=== PATIENT | female | born 1995 ===

== ENCOUNTER 2016-05-14 15:04 | Emergency (ER) | payer BC ==
[2016-05-14 15:46] VITALS: BP 106/69
--- NOTE | 2016-05-14 15:55 | RAD ---
Indication: Right ankle injury. 3 views of the right ankle demonstrates no fracture or dislocation. No other bone or joint abnormality is noted. IMPRESSION: No fracture of the right ankle is noted.
--- NOTE | 2016-05-14 16:07 | UC ---
Lower Extremity/Ankle HPI - HPI Summary HPI Summary: Patient arrives to with CC of right ankle pain after inverting ankle during basketball practice yesterday. Denies knee pain. Pulses intact bilatearlly. No ecchymosis noted over extremity. Denies numbness or tingling in extremity. Denies other injury. Endorses pain over the lateral aspect of right ankle. She states she has injured the area several times. - History of Current Complaint Chief Complaint: UCLowerExtremity Stated Complaint: RIGHT ANKLE PAIN Hx Obtained From: Patient Hx Last Menstrual Period: 04/27/16 ?: No Onset/Duration: Sudden Onset Severity Initially: Moderate Severity Currently: Moderate Pain Intensity: 3 Pain Scale Used: 0-10 Numeric Aggravating Factor(s): Ambulation Alleviating Factor(s): Rest Able to Bear Weight: No - Risk Factors Gout Risk Factors: Negative DVT Risk Factors: Negative Septic Arthritis Risk Factor: Negative - Allergies/Home Medications Allergies/Adverse Reactions: Allergies Allergy/AdvReac Type Severity Reaction Status Date / Time No Known Allergies Allergy Verified 05/14/16 15:23 Home Medications: Home Medications Bcp 1 tab PO DAILY 05/14/16 [History] PMH/Surg Hx/FS Hx/Imm Hx Previously Healthy: Yes - Surgical History Surgical History: None - Social History Occupation: Student Lives: Alone Alcohol Use: Occasionally Substance Use Type: None Smoking Status (MU): Never Smoked Tobacco Have You Smoked in the Last Year: No Review of Systems Constitutional: Negative Skin: Negative Respiratory: Negative Cardiovascular: Negative Motor: Decreased ROM Neurovascular: Negative Musculoskeletal: Arthralgia - right ankle Neurological: Negative Psychological: Negative All Other Systems Reviewed And Are Negative: Yes Physical Exam Triage Information Reviewed: Yes Appearance: Well-Appearing, No Pain Distress, Well-Nourished Vital Signs: Initial Vital Signs Temp 99.3 F 05/14/16 15:18 Pulse 76 05/14/16 15:18 Resp 16 05/14/16 15:18 BP 106/69 05/14/16 15:18 Pulse Ox 100 05/14/16 15:18 Vital Signs Reviewed: Yes Eye Exam: Normal Eyes: Positive: Conjunctiva Clear Neck exam: Normal Neck: Positive: Supple, Nontender Respiratory Exam: Normal Respiratory: Positive: Chest non-tender, Lungs clear Cardiovascular Exam: Normal Musculoskeletal Exam: Other - Thorough physical exam was performed, focusing on ankle special tests. Pain on palpation over lateral aspect and superior aspect of ankle over ATFL and deltoid ligaments. No pain on palpation over medial side. Due to patient pain around injury, physical exam was limited. Unable to perform anterior drawer test or talar tilt test d/t pain. Newman test negative. Limited ROM. Dorsiflexion, great toe extension and plantar flexion intact however limited. No pain on palpation over medial or lateral lower extremity. No pain with knee flexion. Pulses intact bilaterally. No temperature change or pallor noted bilaterally. No ecchymosis or swelling noted on lateral aspect. No lesion or disruption of skin is seen. Unable to bear weight. Neurological Exam: Normal Psychological Exam: Normal Psychological: Positive: Normal Response To Family, Age Appropriate Behavior Diagnostics - Radiology No standard instances Xray Interpretation: No Acute Changes Radiology Interpretation Completed By: Radiologist Lower Extremity Course/Dx - Course Course Of Treatment: Based on [place] Ankle Rules, patient sent to imaging. Xray negative for fracture or other acute findings. Medial and lateral distal lower extremity without pain and x-rays show no widening of the ankle joint regarding low suspicion for Maisonneuve fx. Ankle gel splint given for patient comfort to allow for immobilization for this period of time. Patient with crutches on arrival. Patient given orthopedic follow up in 5-7 days. Encouraged Ibuprofen 600mg three times daily with meals for pain. Return precautions given. Educated patient regarding ankle injuries and healing time and the possibility of further evaluation and imaging as orthopedist sees fit. - Differential Dx/Diagnosis Differential Diagnosis/HQI/PQRI: Contusion, Dislocation, Fracture (Closed), Sprain, Strain Provider Diagnoses: Ankle Sprain Discharge - Discharge Plan Condition: Stable Disposition: HOME Patient Education Materials: Ankle Sprain (ED), Ankle Exercises (GEN) Forms: *School Release Referrals: Non Staff,Doctor [Primary Care Provider] - Additional Instructions: Use ankle gel splint for comfort and stability. Crutches for ambulation. Ibuprofen 600mg three times daily with meals for pain. Follow up with orthopedic physician in 5-7 days. If numbness, tingling, decreased sensation, increased pain, temperature changes or pallor noted in toes, come back to ER immediately. Protect the area. For your comfort level, do not bear weight, pull or push until you can injury is somewhat healed. This may involve the need for immobilization or crutches for a period of time. Rest the involved area, but not too long. You may need to be off your injury for some time to allow for healing, however excessive immobilization of joints can lead to stiffness and delay healing time. Early mobilization is encouraged if it is pain-free. Ice. Not directly on the skin. Cover with a towel. Apply ice no more than 30 minutes at a time Compression: You may use and keep an penelope wrap bandage over the injury to decrease swelling. Again, this should be limited and be taken off periodically to encourage early range of motion and mobilization.
== END 2016-05-14 16:13 | disposition home or self-care (01) ==
LOC: UCCORT 15:04
DX: S93.401A Sprain of unspecified ligament of right ankle, initial encounter (principal); X50.1XXA Overexertion from prolonged static or awkward postures, initial encounter; Y93.67 Activity, basketball; Y92.310 Basketball court as the place of occurrence of the external cause
CPT/HCPCS: 99201; G0463